=== PATIENT | male | born 1985 | race Hispanic/Latino ===

== ENCOUNTER 2018-01-19 18:26 | Emergency (ER) | payer SELFPAY ==
[2018-01-19] MEDS ORDERED: NACL 0.9% 1000 ML 1,000 ML IV ONE (19:15)
[2018-01-19] MEDS ORDERED: TORADOL IV ONE (19:15)
--- NOTE | 2018-01-19 19:22 | Emergency Department Report ---
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 He went to a store to get some hydration. Somehow or another he got into verbal altercation with his girlfriend and the police were called. Patient now complains of sx that started after his arrest that include headache, blurred vision, and feels like his right shoulder locked up when hyperextended by the police liaison. Patient states his girlfriend was recently treated for viral meningitis. He denies any fever and neck pain. Patient states she is thirsty and wants water to drink. - Related Data Previous Rx's Medication Instructions Recorded Last Taken Type Ibuprofen [Motrin] 800 mg PO Q8HR PRN #30 tablet 01/19/18 Unknown Rx Allergies Allergy/AdvReac Type Severity Reaction Status Date / Time No Known Allergies Allergy Unverified 01/19/18 19:29 ED Review of Systems ROS: Stated complaint: DISLOCATED RT SHOULDER Other details as noted in HPI Comment: All other systems reviewed and negative ED Past Medical Hx - Past Medical History Additional medical history: right shoulder dislocation - Surgical History Additional Surgical History: right shoulder surgeries - Social History Smoking Status: Current Every Day Smoker - Medications Home Medications: Home Medications Medication Instructions Recorded Confirmed Last Taken Type Ibuprofen [Motrin] 800 mg PO Q8HR PRN #30 tablet 01/19/18 Unknown Rx ED Physical Exam - General Limitations: No Limitations - Other Other exam information: General: No limitations, patient is alert in no acute distress Head exam: Atraumatic, normocephalic Eyes exam: Normal appearance, pupils equal reactive to light, extraocular movements intact ENT: Moist mucous membrane, normal oropharynx Neck exam: Normal inspection, full range of motion, no meningismus nontender Respiratory exam: Clear to auscultation bilateral, no wheezes, rales, crackles Cardiovascular: Normal rate and rhythm, normal heart sounds Abdomen: Soft, nondistended, and nontender, with normal bowel sounds, no rebound, or guarding Extremity: Right arm held adducted and flexed at the elbow and internally rotated. Patient's has limited external rotation and abduction secondary to pain. No gross deformity noted Back: Normal Inspection, full range of motion, no tenderness Neurologic: Alert, oriented x3, cranial nerves intact, no motor or sensory deficit Psychiatric: normal affect, normal mood Skin: Warm, dry, intact ED Course Vital Signs 01/19/18 18:40 Temperature 98.1 F Pulse Rate 106 H Respiratory 20 Rate Blood Pressure 156/96 O2 Sat by Pulse 96 Oximetry - Reevaluation(s) Reevaluation #1: 01/19/18 22:14 patient threw his urinal across the room stating he did not want to give a urine sample. ED Medical Decision Making - Lab Data Result diagrams: 01/19/18 19:21 01/19/18 19:21 Lab Results 01/19/18 01/19/18 01/19/18 Range/Units 19:21 19:21 19:21 WBC 6.7 (4.5-11.0) K/mm3 RBC 5.19 H (3.65-5.03) M/mm3 Hgb 15.0 (11.8-15.2) gm/dl Hct 43.4 (35.5-45.6) % MCV 84 (84-94) fl MCH 29 (28-32) pg MCHC 34 (32-34) % RDW 13.3 (13.2-15.2) % Plt Count 171 (140-440) K/mm3 Lymph % (Auto) 32.9 (13.4-35.0) % Ellis % (Auto) 10.0 H (0.0-7.3) % Eos % (Auto) 2.1 (0.0-4.3) % Baso % (Auto) 0.5 (0.0-1.8) % Lymph # 2.2 (1.2-5.4) K/mm3 Ellis # 0.7 (0.0-0.8) K/mm3 Eos # 0.1 (0.0-0.4) K/mm3 Baso # 0.0 (0.0-0.1) K/mm3 Seg Neutrophils % 54.5 (40.0-70.0) % Seg Neutrophils # 3.6 (1.8-7.7) K/mm3 Sodium 139 (137-145) mmol/L Potassium 3.9 (3.6-5.0) mmol/L Chloride 99.1 (98-107) mmol/L Carbon Dioxide 27 (22-30) mmol/L Anion Gap 17 mmol/L BUN 17 (9-20) mg/dL Creatinine 1.1 (0.8-1.5) mg/dL Estimated GFR > 60 ml/min BUN/Creatinine Ratio 15 % Glucose 104 H (75-100) mg/dL Calcium 9.0 (8.4-10.2) mg/dL Magnesium (1.7-2.3) mg/dL Total Creatine Kinase 251 H (55-170) units/L Plasma/Serum Alcohol < 0.01 (0-0.07) % /02/01 Range/Units 19:21 WBC (4.5-11.0) K/mm3 RBC (3.65-5.03) M/mm3 Hgb (11.8-15.2) gm/dl Hct (35.5-45.6) % MCV (84-94) fl MCH (28-32) pg MCHC (32-34) % RDW (13.2-15.2) % Plt Count (140-440) K/mm3 Lymph % (Auto) (13.4-35.0) % Ellis % (Auto) (0.0-7.3) % Eos % (Auto) (0.0-4.3) % Baso % (Auto) (0.0-1.8) % Lymph # (1.2-5.4) K/mm3 Ellis # (0.0-0.8) K/mm3 Eos # (0.0-0.4) K/mm3 Baso # (0.0-0.1) K/mm3 Seg Neutrophils % (40.0-70.0) % Seg Neutrophils # (1.8-7.7) K/mm3 Sodium (137-145) mmol/L Potassium (3.6-5.0) mmol/L Chloride (98-107) mmol/L Carbon Dioxide (22-30) mmol/L Anion Gap mmol/L BUN (9-20) mg/dL Creatinine (0.8-1.5) mg/dL Estimated GFR ml/min BUN/Creatinine Ratio % Glucose (75-100) mg/dL Calcium (8.4-10.2) mg/dL Magnesium 2.20 (1.7-2.3) mg/dL Total Creatine Kinase (55-170) units/L Plasma/Serum Alcohol (0-0.07) % - EKG Data -: EKG Interpreted by Me EKG shows normal: sinus rhythm, axis (qrs 59), QRS complexes (qrsd 109), ST-T waves (no stemi/t inv) Rate: normal (90) - EKG Data When compared to previous EKG there are: previous EKG unavailable - Radiology Data Radiology results: report reviewed ct head: IMPRESSION: Negative unenhanced CT scan of the brain. Mild paranasal sinus disease as described. xr shoulder right IMPRESSION: 1. No acute osseous abnormality. 2. Degenerative changes. - Medical Decision Making Right shoulder injury Chronic degenerative changes without acute findings Patient has chronic mobility and medications given chronic shoulder issue Labs unremarkable CT head without acute finding Patient received 1 L normal saline and IV Toradol Will be discharged back into police custody HR 100 pt is belligerent at time with buyer liaison and upset about his arrest - Differential Diagnosis dehydration, rhabdo, dislocation, sprain Critical Care Time: No Critical care attestation.: If time is entered above; I have spent that time in minutes in the direct care of this critically ill patient, excluding procedure time. ED Disposition Clinical Impression: DJD of right shoulder Disposition: DC-01 TO HOME OR SELFCARE Is pt being admited?: No Does the pt Need Aspirin: No Condition: Stable Instructions: Osteoarthritis (ED) Additional Instructions: Follow up with the orthopedic doctor provided or the doctor of your choice. Prescriptions: Ibuprofen [Motrin] 800 mg PO Q8HR PRN #30 tablet PRN Reason: Pain Referrals: PRIMARY CAREMD [Primary Care Provider] - 3-5 Days FARTUN HASKINS MD [Staff Physician] - 3-5 Days (orthopedic doctor ) [facility] [Provider Group] - 3-5 Days Time of Disposition: 21:47
[2018-01-19 19:32] LABS: Basophils % (Auto) 0.5 % (0.0-1.8); Eosinophils # (Auto) 0.1 K/mm3 (0.0-0.4); Eosinophils % (Auto) 2.1 % (0.0-4.3); Hematocrit 43.4 % (35.5-45.6); Lymphocytes # (Auto) 2.2 K/mm3 (1.2-5.4); Lymphocytes % (Auto) 32.9 % (13.4-35.0); Mean Corpuscular HGB Conc 34 % (32-34); Mean Corpuscular Hemoglobin 29 pg (28-32); Mean Corpuscular Volume 84 fl (84-94); Monocytes # (Auto) 0.7 K/mm3 (0.0-0.8); Platelet Count 171 K/mm3 (140-440); Red Blood Count 5.19 M/mm3 (3.65-5.03); Red Cell Distribution Width 13.3 % (13.2-15.2)
[2018-01-19 19:52] LABS: BUN/Creatinine Ratio 15; Blood Urea Nitrogen 17 mg/dL (9-20); Hemolysis Index 9
--- NOTE | 2018-01-19 19:58 | XRay Report ---
FINAL REPORT EXAM: XR SHOULDER 2+V RT HISTORY: right shoulder pain, hx of dislocations TECHNIQUE: 3 views of right shoulder. PRIORS: None. FINDINGS: Considerable degenerative changes in the glenohumeral joint, including chronic-appearing Hill-Sachs deformity in humeral head. Less severe degenerative change in the AC joint. No apparent fracture or dislocation. Soft tissues grossly unremarkable. IMPRESSION: 1. No acute osseous abnormality. 2. Degenerative changes.
--- NOTE | 2018-01-19 20:07 | Cat Scan Report ---
FINAL REPORT PROCEDURE: CT HEAD/BRAIN WO CON TECHNIQUE: Computerized tomography of the head was performed without contrast material. HISTORY: randall, blurred vision COMPARISON: No prior studies are available for comparison. FINDINGS: Brain: Brain density appears normal. No evidence of intracranial hemorrhage. No parenchymal hemorrhage, mass lesions or mass effect are seen. No abnormal extraxial fluid collects or masses are seen. Ventricles: Ventricles are normal size and are midline. Bone Windows: No evidence of skull fracture. Paranasal sinuses: Small nodular density is seen anteriorly in the right maxillary sinus suggesting a polyp or mucous retention cyst, and there is mild nodular mucosal thickening posteriorly in the left side of the sphenoid sinus. Visualized paranasal sinuses otherwise are clear. Mastoid air cells: Clear IMPRESSION: Negative unenhanced CT scan of the brain. Mild paranasal sinus disease as described.
[2018-01-20 03:05] VITALS: BP 135/78
== END 2018-01-19 23:00 | disposition home or self-care (01) ==
LOC: ED 18:26
DX: M19.011 Primary osteoarthritis, right shoulder (principal); F17.200 Nicotine dependence, unspecified, uncomplicated
CPT/HCPCS: 36415; 70450; 73030; 80048; 82550; 83735; 85025; 93005; 93010; 96361; 96374; 99285; G0480; J1885; J7030; 80320